=== PATIENT | female | born 1990 | race African-American/Black ===

== ENCOUNTER 2016-08-03 10:13 | Emergency (ER) | payer OTHER ==
[2016-08-03 10:24] LABS: INFLUENZA A POS (NEG)
[2016-08-03 10:25] LABS: INFLUENZA B NEG (NEG)
== END 2016-08-03 11:10 | disposition home or self-care (01) ==
LOC: CED 10:13
PROVIDERS: Nurse Practitioner
DX: J10.1 Influenza due to other identified influenza virus with other respiratory manifestations (principal); H66.92 Otitis media, unspecified, left ear; E11.9 Type 2 diabetes mellitus without complications
CPT/HCPCS: 87651; 87804; 87880; 99283